=== PATIENT | female | born 1990 | race American Indian/Alaskan Native ===

== ENCOUNTER 2017-03-11 16:12 | Emergency (ER) | payer MEDICAID ==
[2017-03-11 17:04] VITALS: BP 113/74
[2017-03-11 17:31] LABS: Basophils % (Auto) 0.8 % (0.0-1.8); Eosinophils % (Auto) 1.5 % (0.0-4.3); Hematocrit 37.6 % (30.3-42.9); Hemoglobin 12.3 gm/dl (10.1-14.3); Mean Corpuscular HGB Conc 33 % (30-34); Mean Corpuscular Hemoglobin 29 pg (28-32); Mean Corpuscular Volume 89 fl (79-97); Platelet Count 236 K/mm3 (140-440); Red Blood Count 4.21 M/mm3 (3.65-5.03); Red Cell Distribution Width 14.5 % (13.2-15.2); White Blood Count 5.8 K/mm3 (4.5-11.0)
[2017-03-11 18:29] LABS: Bilirubin,Urine NEG (Negative); Blood,Urine LG (Negative); Ketones,Urine NEG (Negative); Leukocyte Esterase,Urine TR (Negative); Nitrite,Urine NEG (Negative); Urobilinogen,Urine < 2.0 mg/dL (<2.0)
[2017-03-11 18:36] LABS: RBC,Urine > 182.0 /HPF (0.0-6.0)
== END 2017-03-11 21:40 | disposition left against medical advice (07) ==
LOC: ED 16:12
DX: O20.9 Hemorrhage in early pregnancy, unspecified (principal); Z3A.00 Weeks of gestation of pregnancy not specified; Z53.21 Procedure and treatment not carried out due to patient leaving prior to being seen by health care provider
CPT/HCPCS: 36415; 81001; 84702; 85025; 86850; 86900; 86901

== ENCOUNTER 2019-06-30 22:56 | Observation (INO) | payer MEDICAID ==
[2019-06-30] MEDS ORDERED: LACTATED RINGERS 1,000 ML ONE (23:15)
[2019-06-30] MEDS ORDERED: TERBUTALINE 1 MG/1 ML INJ SUB-Q PRN (23:16)
[2019-06-30] MEDS ORDERED: ePHEDrine SULFATE 50 MG/1 ML INJ IV PRN (23:16)
[2019-06-30] MEDS ORDERED: LIDOCAINE (2%) 20 MG/1 ML VIAL 20 ML MDV INFILTRATI ONE (23:16)
[2019-06-30] MEDS ORDERED: NalbUPHINE 10 MG/1 ML INJ IV PRN (23:16)
[2019-06-30] MEDS ORDERED: MINERAL OIL 30 ML ORAL LIQD PO PRN (23:16)
[2019-06-30] MEDS ORDERED: BUTORPHANOL 2 MG/1 ML INJ IV PRN (23:16)
[2019-06-30] MEDS ORDERED: TERBUTALINE 1 MG/1 ML INJ IVP PRN (23:16)
[2019-06-30] MEDS ORDERED: ONDANSETRON 4 MG/2 ML INJ IV PRN (23:16)
[2019-06-30] MEDS: LACTATED RINGERS 1,000 ML IV SCH (23:20)
[2019-06-30] MEDS ORDERED: OXYTOCIN 20 UNIT/1000ML DRIP 20 UNITS/1,000 ML BAG IV SCH (23:45)
[2019-07-01 00:44] LABS: Benzodiazepines Screen,Urine PRESUMPTIVE NEGATIVE; Methadone Screen,Urine PRESUMPTIVE NEGATIVE; Opiate Screen,Urine PRESUMPTIVE NEGATIVE
[2019-07-01 00:45] LABS: Bilirubin,Urine NEG (Negative); Blood,Urine NEG (Negative); Color,Urine Yellow (Yellow); RBC,Urine < 1.0 /HPF (0.0-6.0); Urobilinogen,Urine < 2.0 mg/dL (<2.0)
[2019-07-01 01:16] LABS: Amphetamine Screen,Urine PRESUMPTIVE POSITIVE; Cannabinoid Screen,Urine PRESUMPTIVE POSITIVE; Cocaine Screen,Urine PRESUMPTIVE POSITIVE
[2019-07-01] MEDS: LACTATED RINGERS 1,000 ML IV SCH ×2 (01:31→08:12)
--- NOTE | 2019-07-01 01:38 | Ultrasound Report ---
ULTRASOUND OBSTETRIC LIMITED ULTRASOUND BIOPHYSICAL PROFILE INDICATION / CLINICAL INFORMATION: placenta. Lower abdominal pain. labor. Clinical gestational age is 36 weeks 0 days. COMPARISON: None available. FINDINGS: BREATHING MOVEMENT = 0 GROSS BODY MOVEMENT = 0 TONE = 0 QUALITATIVE AMNIOTIC FLUID VOLUME = 2 TOTAL BIOPHYSICAL SCORE = 2/8 HEART RATE (beats per minute): 129 AMNIOTIC FLUID INDEX (cm) = not calculated. Subjectively, there is decreased amniotic fluid volume. PRESENTATION: Cephalic. ADDITIONAL FINDINGS: Placenta is anterior and free of the os. IMPRESSION: 1. Biophysical Score = 2/8 2. heart rate is 129 bpm. 3. Anterior placenta with no sonographic evidence for abruption. 4. Subjectively decreased amount of amniotic fluid. Signer Name: Arcadio Castanon MD Signed: 07/01/2019 1:34 AM Workstation Name: [id number]
[2019-07-01 01:56] LABS: Hematocrit 33.5 % (30.3-42.9); Hemoglobin 10.6 gm/dl (10.1-14.3); Mean Corpuscular HGB Conc 32 % (30-34); Mean Corpuscular Volume 95 fl (79-97); Platelet Count 219 K/mm3 (140-440); Red Blood Count 3.54 M/mm3 (3.65-5.03); Red Cell Distribution Width 17.2 % (13.2-15.2)
[2019-07-01] MEDS ORDERED: AMPICILLIN/NS 1 GM/50 ML 1 GM/50 ML BAG IV SCH (03:19)
[2019-07-01 07:25] VITALS: BP 113/66
--- NOTE | 2019-07-01 09:40 | History and Physical Report ---
History of Present Illness Date of examination: 07/01/19 Date of admission: 07/01/19 00:54 Chief complaint: abdominal pain History of present illness: 28yo at 36+1/7 weeks presented last night to OB triage with acute onset abdominal pain after "smoking a blunt". no LOF, no VB, GFM. In triage initial BPP was 2/8. Patient received one dose of Stadol and has been comfortable since. UDS +ve for cocaine, marijuana and amphetamine US neg for UTI CBC WNL FHT 140 baseline, moderate variability and Category 1 throughout stay Past History Past Medical History: no pertinent history Past Surgical History: no surgical history Family/Genetic History: none Social history: single, other (UDS +ve for marijuana, cocaine and amphetamine) - Obstetrical History : 4 Medications and Allergies Allergies Allergy/AdvReac Type Severity Reaction Status Date / Time No Known Allergies Allergy Verified 04/12/16 01:09 Home Medications Medication Instructions Recorded Confirmed Last Taken Type Vit Calc,Iron,Folic 1 each PO QDAY #31 tablet 11/20/15 07/01/19 06/03/19 08:00 Rx [ Vitamins] HYDROcodone/APAP 10-325 [[place] 1 each PO Q6HR PRN #10 tablet 04/12/16 07/01/19 Unknown Rx 10/325] Gentamicin 0.3% Ophth Soln 2 drops OD Q8H #1 bottle 09/01/16 07/01/19 Unknown Rx Active Meds: Active Medications Butorphanol Tartrate (Stadol) 2 mg IV Q2H PRN PRN Reason: Pain , Severe (7-10) Last Admin: 06/30/19 23:35 Dose: 2 mg Documented by: Ephedrine Sulfate (Ephedrine Sulfate) 10 mg IV Q2M PRN PRN Reason: Hypotension Oxytocin/Sodium Chloride (Pitocin/Ns 20 Unit/1000ml Drip) 20 units in 1,000 mls @ 125 mls/hr IV DIRECT CHELSEY Lactated Ringer's (Lactated Ringers) 1,000 mls @ 125 mls/hr IV DIRECT CHELSEY Last Admin: 07/01/19 08:12 Dose: 125 mls/hr Documented by: Ampicillin Sodium (Ampicillin/Ns 1 Gm/50 Ml) 1 gm in 50 mls @ 100 mls/hr IV Q4HR CHELSEY; Protocol Last Admin: 07/01/19 08:16 Dose: 100 mls/hr Documented by: Mineral Oil (Mineral Oil) 30 ml PO QHS PRN PRN Reason: Constipation Nalbuphine HCl (Nubain) 10 mg IV Q2H PRN PRN Reason: Pain, Moderate (4-6) Ondansetron HCl (Zofran) 4 mg IV Q8H PRN PRN Reason: Nausea And Vomiting Terbutaline Sulfate (Brethine) 0.25 mg SUB-Q ONCE PRN PRN Reason: Hyperstimulation/Hypertonicity Terbutaline Sulfate (Brethine) 0.25 mg IVP ONCE PRN PRN Reason: Hyperstimulation/Hypertonicity Review of Systems Genitourinary: no vaginal bleeding, no vaginal discharge, no leakage of fluid, no contractions - Vital Signs Vital signs: Vital Signs Pulse Pulse Ox 114 H 96 06/30/19 23:48 06/30/19 23:48 Temp Pulse Resp BP Pulse Ox 98.5 F 124 H 18 113/66 99 07/01/19 07:24 07/01/19 09:31 07/01/19 07:24 07/01/19 07:25 07/01/19 09:31 - Physical Exam Genitourinary (Female): Positive: normal perenium - Obstetrical FHR: category 1 Cervical Dilatation: 0 Cervical Effacement Percentage: 0 station: -1 Results Result Diagrams: 06/30/19 23:30 Abnormal lab results 06/30/19 Range/Units 23:30 RBC 3.54 L (3.65-5.03) M/mm3 RDW 17.2 H (13.2-15.2) % All other labs normal. Assessment and Plan abdominal pain and contractions after drug use-resolved P: Patient not in labor FHT Catagory 1 no evidence abruption or SROM Repeat BPP And is 05/10 discharge to home with social service liaison consult. Follow up clinic in one week
--- NOTE | 2019-07-01 10:52 | Ultrasound Report ---
US OB BPP wo non-stress INDICATION: Follow-up of abnormal BPP of 28 yesterday. COMPARISON: Pelvic ultrasound from 06/22/2019. FINDINGS: A single live intrauterine is seen with a heart rate of 163 bpm. The biophysical profile is normal and 8/8. IMPRESSION: Single live intrauterine with a normal biophysical profile. Signer Name: Sergio Singh MD Signed: 07/01/2019 10:48 AM Workstation Name: [id number]
== END 2019-07-01 11:00 | disposition home or self-care (01) ==
LOC: TRG 22:56 → LD 22:59 → TRG 23:16 → INTOOBSV 07-01 00:54 → LD 07-01 00:54
PROVIDERS: ADMIT Obstetrics & Gynecology; ATTEND Obstetrics & Gynecology
DX: O62.9 Abnormality of forces of labor, unspecified (principal); O26.893 Other specified pregnancy related conditions, third trimester; R10.9 Unspecified abdominal pain; O99.323 Drug use complicating pregnancy, third trimester; F14.10 Cocaine abuse, uncomplicated; F12.10 Cannabis abuse, uncomplicated; F15.10 Other stimulant abuse, uncomplicated; Z3A.36 36 weeks gestation of pregnancy
CPT/HCPCS: 36415; 76815; 76819; 80307; 81001; 85014; 85018; 85027; 86592; 86850; 86900; 86901; 87086; 96365; 96375; G0378; J0290; J0595; J2590; J3105; J7120

== ENCOUNTER 2020-01-07 10:21 | Emergency (ER) | payer SELFPAY ==
[2020-01-07] MEDS ORDERED: ACETAMINOPHEN 325 MG TAB PO ONE (11:50)
[2020-01-07 12:23] LABS: Basophils # (Auto) 0.1 K/mm3 (0.0-0.1); Basophils % (Auto) 0.8 % (0.0-1.8); Eosinophils % (Auto) 0.4 % (0.0-4.3); Hematocrit 38.7 % (30.3-42.9); Hemoglobin 13.2 gm/dl (10.1-14.3); Mean Corpuscular HGB Conc 34 % (30-34); Mean Corpuscular Volume 87 fl (79-97); Monocytes # (Auto) 0.8 K/mm3 (0.0-0.8); Monocytes % (Auto) 10.8 % (0.0-7.3); Platelet Count 215 K/mm3 (140-440); Red Blood Count 4.45 M/mm3 (3.65-5.03)
[2020-01-07 12:35] LABS: Bacteria,Urine 1+ /HPF (Negative); Bilirubin,Urine NEG (Negative); Blood,Urine MOD (Negative); Color,Urine Yellow (Yellow); Mucus,Urine FEW /HPF
[2020-01-07 12:36] LABS: WBC,Urine > 182.0 /HPF (0.0-6.0)
[2020-01-07] MEDS ORDERED: cefTRIAXone/NS 1 GM/50 ML 1 GM/50 ML BAG IV ONE (12:44)
[2020-01-07] MEDS ORDERED: SODIUM CHLORIDE 0.9% 1000 ML 1,000 ML IV ONE (12:44)
[2020-01-07 13:00] LABS: BUN/Creatinine Ratio 11; Blood Urea Nitrogen 8 mg/dL (7-17); Hemolysis Index 113
--- NOTE | 2020-01-07 13:03 | XRay Report ---
CHEST 2 VIEWS INDICATION / CLINICAL INFORMATION: fever, cough. COMPARISON: None available. FINDINGS: SUPPORT DEVICES: None. HEART / MEDIASTINUM: No significant abnormality. LUNGS / PLEURA: No significant pulmonary or pleural abnormality. .No pneumothorax. ADDITIONAL FINDINGS: No significant additional findings. IMPRESSION: 1. No acute findings. Signer Name: Sai Jane MD Signed: 01/07/2020 12:58 PM Workstation Name: [id number]
[2020-01-07 13:57] LABS: Alanine Aminotransferase 23 units/L (7-56)
[2020-01-07 14:04] VITALS: BP 124/78
--- NOTE | 2020-01-07 14:28 | Emergency Department Report ---
ED General Adult HPI - General Stated complaint: CHILLS, BODYACHE Time Seen by Provider: 01/07/20 11:28 Source: patient Mode of arrival: Ambulatory Limitations: No Limitations - History of Present Illness Initial comments: Patient is a 29-year-old female who presents the emergency room with complaints of fever and chills that began 4 days ago. She has associated nausea, suprap ubic discomfort, headache, dysuria. She states that she has had an occasional mild dry cough. She denies any chest pain, shortness of breath, vomiting, diarrhea, back pain. She denies any past medical history or allergies to medications. She does not report any vaginal discharge or irritation. She states her last menstrual cycle was 2 weeks ago. She has not taken anything today for a fever. Severity scale (0 -10): 0 - Related Data Previous Rx's Medication Instructions Recorded Last Taken Type Vit Calc,Iron,Folic 1 each PO QDAY #31 tablet 11/20/15 06/03/19 08:00 Rx [ Vitamins] HYDROcodone/APAP 10-325 [[place] 1 each PO Q6HR PRN #10 tablet 04/12/16 Unknown Rx 10/325] Gentamicin 0.3% Ophth Soln 2 drops OD Q8H #1 bottle 09/01/16 Unknown Rx Acetaminophen [Tylenol] 650 mg PO Q8HR PRN #20 capsule 01/07/20 Unknown Rx Ondansetron [Zofran Odt] 4 mg PO Q8HR PRN #14 tab.rapdis 01/07/20 Unknown Rx cephALEXin [Keflex] 500 mg PO BID 10 Days #20 cap 01/07/20 Unknown Rx Allergies Allergy/AdvReac Type Severity Reaction Status Date / Time No Known Allergies Allergy Verified 04/12/16 01:09 ED Review of Systems ROS: Stated complaint: CHILLS, BODYACHE Other details as noted in HPI Comment: All other systems reviewed and negative ED Past Medical Hx - Past Medical History Hx Hypertension: No Hx Congestive Heart Failure: No Hx Diabetes: No Hx Deep Vein Thrombosis: No Hx Renal Disease: No Hx Sickle Cell Disease: No Hx Seizures: No Hx Asthma: Yes Hx COPD: No Hx HIV: No - Surgical History Additional Surgical History: - Social History Smoking Status: Former Smoker - Medications Home Medications: Home Medications Medication Instructions Recorded Confirmed Last Taken Type Vit Calc,Iron,Folic 1 each PO QDAY #31 tablet 11/20/15 07/24/19 9 08:00 Rx [ Vitamins] HYDROcodone/APAP 10-325 [[place] 1 each PO Q6HR PRN #10 tablet 04/12/16 07/24/19 Unknown Rx 10/325] Gentamicin 0.3% Ophth Soln 2 drops OD Q8H #1 bottle 09/01/16 07/24/19 Unknown Rx Acetaminophen [Tylenol] 650 mg PO Q8HR PRN #20 capsule 01/07/20 Unknown Rx Ondansetron [Zofran Odt] 4 mg PO Q8HR PRN #14 tab.rapdis 01/07/20 Unknown Rx cephALEXin [Keflex] 500 mg PO BID 10 Days #20 cap 01/07/20 Unknown Rx ED Physical Exam - General Limitations: No Limitations General appearance: alert, in no apparent distress - Head Head exam: Present: atraumatic, normocephalic - Eye Eye exam: Present: normal appearance - ENT ENT exam: Present: mucous membranes moist - Respiratory Respiratory exam: Present: normal lung sounds bilaterally. Absent: respiratory distress, wheezes, rales, rhonchi, stridor, chest wall tenderness, accessory muscle use, decreased breath sounds, prolonged expiratory - Cardiovascular Cardiovascular Exam: Present: regular rate, normal rhythm, normal heart sounds. Absent: systolic murmur, diastolic murmur, rubs, gallop - Back Exam Back exam: Absent: CVA tenderness (R), CVA tenderness (L) - Neurological Exam Neurological exam: Present: alert, oriented X3 - Psychiatric Psychiatric exam: Present: normal affect, normal mood - Skin Skin exam: Present: warm, dry, intact ED Course Vital Signs 01/07/20 01/07/20 10:29 14:03 Temperature 102.4 F H 99.0 F Pulse Rate 112 H 86 Respiratory 24 16 Rate Blood Pressure 122/81 Blood Pressure 124/78 [Left] O2 Sat by Pulse 98 98 Oximetry ED Medical Decision Making - Lab Data Result diagrams: 01/07/20 11:57 01/07/20 11:57 Lab Results 01/07/20 01/07/20 01/07/20 Range/Units 11:57 11:57 11:57 WBC 7.5 (4.5-11.0) K/mm3 RBC 4.45 (3.65-5.03) M/mm3 Hgb 13.2 (10.1-14.3) gm/dl Hct 38.7 (30.3-42.9) % MCV 87 (79-97) fl MCH 30 (28-32) pg MCHC 34 (30-34) % RDW 14.0 (13.2-15.2) % Plt Count 215 (140-440) K/mm3 Lymph % (Auto) 13.0 L (13.4-35.0) % [place] % (Auto) 10.8 H (0.0-7.3) % Eos % (Auto) 0.4 (0.0-4.3) % Baso % (Auto) 0.8 (0.0-1.8) % Lymph # 1.0 L (1.2-5.4) K/mm3 [place] # 0.8 (0.0-0.8) K/mm3 Eos # 0.0 (0.0-0.4) K/mm3 Baso # 0.1 (0.0-0.1) K/mm3 Seg Neutrophils % 75.0 H (40.0-70.0) % Seg Neutrophils # 5.6 (1.8-7.7) K/mm3 Sodium 135 L (137-145) mmol/L Potassium 4.2 (3.6-5.0) mmol/L Chloride 97.4 L (98-107) mmol/L Carbon Dioxide 20 L (22-30) mmol/L Anion Gap 22 mmol/L BUN 8 (7-17) mg/dL Creatinine 0.7 (0.7-1.2) mg/dL Estimated GFR > 60 ml/min BUN/Creatinine Ratio 11 % Glucose 90 (65-100) mg/dL Calcium 9.0 (8.4-10.2) mg/dL Total Bilirubin 0.50 (0.1-1.2) mg/dL AST 28 (5-40) units/L ALT 23 (7-56) units/L Alkaline Phosphatase 53 (35-129) units/L Total Protein 8.0 (6.3-8.2) g/dL Albumin 4.0 (3.9-5) g/dL Albumin/Globulin Ratio 1.0 % Lipase 17 (13-60) units/L HCG, Qual Negative (Negative) Urine Color (Yellow) Urine Turbidity (Clear) Urine pH (5.0-7.0) Ur Specific [place] (1.003-1.030) Urine Protein (Negative) mg/dL Urine Glucose (UA) (Negative) mg/dL Urine Ketones (Negative) mg/dL Urine Blood (Negative) Urine Nitrite (Negative) Urine Bilirubin (Negative) Urine Urobilinogen (<2.0) mg/dL Ur Leukocyte Esterase (Negative) Urine WBC (Auto) (0.0-6.0) /HPF Urine RBC (Auto) (0.0-6.0) /HPF U Epithel Cells (Auto) (0-13.0) /HPF Urine Bacteria (Auto) (Negative) /HPF Urine WBC Clumps /HPF Ur Transition Epith Cell /HPF Urine Mucus /HPF 01/07/20 Range/Units 12:15 WBC (4.5-11.0) K/mm3 RBC (3.65-5.03) M/mm3 Hgb (10.1-14.3) gm/dl Hct (30.3-42.9) % MCV (79-97) fl MCH (28-32) pg MCHC (30-34) % RDW (13.2-15.2) % Plt Count (140-440) K/mm3 Lymph % (Auto) (13.4-35.0) % [place] % (Auto) (0.0-7.3) % Eos % (Auto) (0.0-4.3) % Baso % (Auto) (0.0-1.8) % Lymph # (1.2-5.4) K/mm3 [place] # (0.0-0.8) K/mm3 Eos # (0.0-0.4) K/mm3 Baso # (0.0-0.1) K/mm3 Seg Neutrophils % (40.0-70.0) % Seg Neutrophils # (1.8-7.7) K/mm3 Sodium (137-145) mmol/L Potassium (3.6-5.0) mmol/L Chloride (98-107) mmol/L Carbon Dioxide (22-30) mmol/L Anion Gap mmol/L BUN (7-17) mg/dL Creatinine (0.7-1.2) mg/dL Estimated GFR ml/min BUN/Creatinine Ratio % Glucose (65-100) mg/dL Calcium (8.4-10.2) mg/dL Total Bilirubin (0.1-1.2) mg/dL AST (5-40) units/L ALT (7-56) units/L Alkaline Phosphatase (35-129) units/L Total Protein (6.3-8.2) g/dL Albumin (3.9-5) g/dL Albumin/Globulin Ratio % Lipase (13-60) units/L HCG, Qual (Negative) Urine Color Yellow (Yellow) Urine Turbidity Cloudy (Clear) Urine pH 6.0 (5.0-7.0) Ur Specific [place] 1.012 (1.003-1.030) Urine Protein 100 mg/dl (Negative) mg/dL Urine Glucose (UA) Neg (Negative) mg/dL Urine Ketones Neg (Negative) mg/dL Urine Blood Mod (Negative) Urine Nitrite Pos (Negative) Urine Bilirubin Neg (Negative) Urine Urobilinogen 2.0 (<2.0) mg/dL Ur Leukocyte Esterase Lg (Negative) Urine WBC (Auto) > 182.0 H (0.0-6.0) /HPF Urine RBC (Auto) 9.0 (0.0-6.0) /HPF U Epithel Cells (Auto) 2.0 (0-13.0) /HPF Urine Bacteria (Auto) 1+ (Negative) /HPF Urine WBC Clumps 2+ /HPF Ur Transition Epith Cell 1 /HPF Urine Mucus Few /HPF Vital Signs 01/07/20 01/07/20 10:29 14:03 Temperature 102.4 F H 99.0 F Pulse Rate 112 H 86 Respiratory 24 16 Rate Blood Pressure 122/81 Blood Pressure 124/78 [Left] O2 Sat by Pulse 98 98 Oximetry - Radiology Data Radiology results: report reviewed CHEST 2 VIEWS INDICATION / CLINICAL INFORMATION: fever, cough. COMPARISON: None available. FINDINGS: SUPPORT DEVICES: None. HEART / MEDIASTINUM: No significant abnormality. LUNGS / PLEURA: No significant pulmonary or pleural abnormality. .No pneumothorax. ADDITIONAL FINDINGS: No significant additional findings. IMPRESSION: 1. No acute findings. Signer Name: Sai Jane MD Signed: 01/07/2020 12:58 PM Workstation Name: [id number] Transcribed By: Dictated By: Sai Jane MD Electronically Authenticated By: Sai Jane MD Signed Date/Time: 01/07/201257 DD/ 57 TD/TT: - Medical Decision Making Patient is a 29-year-old female who presents the emergency room with complaints of fever and chills that began 4 days ago. She has associated nausea, suprapubic discomfort, headache, dysuria. She states that she has had an occasional mild dry cough. She denies any chest pain, shortness of breath, vomiting, diarrhea, back pain. She denies any past medical history or allergies to medications. She does not report any vaginal discharge or irritation. She states her last menstrual cycle was 2 weeks ago. She has not taken anything today for a fever. She will vitals with fever and tachycardia which improved upon Tylenol administration to normal. Labs are stable. UA shows evidence of significant UTI with many white blood cells and large leukocyte esterase. Patient given 1 L IV fluids and ceftriaxone while in the ED. CXR: 1. No acute findings. Patient has no CVA tenderness on exam. She has no vomiting. She is able to tolerate p.o. intake. Patient given prescription for Tylenol, Keflex, Zofran. Advised patient Please take medication as prescribed. Increase your water intake. Please follow-up with a primary care doctor and have your urine retested for clearance of bacteria. Return to the emergency room for any new or worsening symptoms. Discussed with patient to self isolate for 1 week and that she may only return to work after a week and after she has been fever free for 48 hours. Critical care attestation.: If time is entered above; I have spent that time in minutes in the direct care of this critically ill patient, excluding procedure time. ED Disposition Clinical Impression: UTI (urinary tract infection) Qualifiers: Urinary tract infection type: site unspecified Hematuria presence: without hematuria Qualified Code(s): N39.0 - Urinary tract infection, site not specified Disposition: TO HOME OR SELFCARE Is pt being admited?: No Does the pt Need Aspirin: No Condition: Stable Instructions: Urinary Tract Infection in Women (ED) Additional Instructions: Please take medication as prescribed. Increase your water intake. Please follow-up with a primary care doctor and have your urine retested for clearance of bacteria. Return to the emergency room for any new or worsening symptoms. Prescriptions: cephALEXin [Keflex] 500 mg PO BID 10 Days #20 cap Acetaminophen [Tylenol] 650 mg PO Q8HR PRN #20 capsule PRN Reason: fever Ondansetron [Zofran Odt] 4 mg PO Q8HR PRN #14 tab.rapdis PRN Reason: Nausea And Vomiting Referrals: [facility] [Provider Group] - 3-5 Days [facility] [Outside] - 3-5 Days [facility] [Outside] - 3-5 Days TRISTA MONTANO MD [Staff Physician] - 3-5 Days Forms: Work/School Release Form(ED) Time of Disposition: 14:28 Print Language: AZERI
== END 2020-01-07 14:55 | disposition home or self-care (01) ==
LOC: ED 10:21
DX: N39.0 Urinary tract infection, site not specified (principal); R05 Cough; J45.909 Unspecified asthma, uncomplicated; Z98.890 Other specified postprocedural states; Z79.2 Long term (current) use of antibiotics; Z79.899 Other long term (current) drug therapy; Z87.891 Personal history of nicotine dependence
CPT/HCPCS: 36415; 71046; 80053; 81001; 83690; 84703; 85025; 87086; 96365; 99284; J0696; J7030; 87076; 87186